=== PATIENT | female | born 1940 | race Two or more races ===

== ENCOUNTER 2023-01-10 16:02 | Emergency (ER) | payer MEDICARE, MEDICAID ==
[~2023-01-10] VITALS: Ht 149.9 cm; Wt 68.2 kg
--- NOTE | 2023-01-10 16:09 | NUR ---
MSE COMPLETED BY VIET LANE
[2023-01-10] MEDS ORDERED: morphine 4 MG/ML inj SYRINge IV ONE (21:05)
[2023-01-10] MEDS ORDERED: morphine 10mg/ml inj. IM ONE (21:15)
[2023-01-10] MEDS ORDERED: ondansetron 4mg rapidly disintigrating tab PO ONE (21:20)
[2023-01-10 22:12] VITALS: BP 160/86; PULSE 61; RESP 16; TEMP 98.2; O2SAT 99
--- NOTE | 2023-01-11 02:49 | NUR ---
I AGREE WITH ASSESMENT OF NILSON SMITH
[2023-01-11] MEDS ORDERED: IBUP-1984 PO (13:00)
== END 2023-01-10 22:14 | disposition home or self-care (01) ==
LOC: ER 16:04
DX: S46.911A Strain of unspecified muscle, fascia and tendon at shoulder and upper arm level, right arm, initial encounter (principal); S73.101A Unspecified sprain of right hip, initial encounter; S13.9XXA Sprain of joints and ligaments of unspecified parts of neck, initial encounter; S09.90XA Unspecified injury of head, initial encounter; M25.521 Pain in right elbow; Z88.0 Allergy status to penicillin; W19.XXXA Unspecified fall, initial encounter; Y93.89 Activity, other specified; Y92.89 Other specified places as the place of occurrence of the external cause; Y99.8 Other external cause status
CPT/HCPCS: 70450; 72192; 73030; 73560; 96372; 99285; J2274